=== PATIENT | male | born 1940 | race Caucasian/White ===

== ENCOUNTER → 2016-06-15 | Outpatient (CLI) | payer OTHER ==
[~2016-06-15] VITALS: Ht 172.7 cm; Wt 83.9 kg
[~2016-06-15] MED LIST: AEROBID INHALER7 GM IH; DOXYCYCLINE HY100 MG PO; ELIQUIS5 MG PO; FINASTERIDE5 MG PO; HYTRIN2 M1 PO; HYTRIN2 MG PO; INDOCIN50 MG PO; IRON325 M1 PO; METFORMIN HCL1000 MG PO; NORCO 5/3251 TABLET PO; PREDNISONE10 MG PO; PROVENTIL,2.5 MG/3 M IH; SEREVENT DISKU50 MCG IH; SYMBICORT60 INHALA1 IH; VENTOLIN HFA18 GM IH
[2016-06-15 09:08] LABS: POINT-OF-CARE METER ID UU13113694
== END | disposition home or self-care (01) ==
LOC: AMB 07:26
PROVIDERS: Internal Medicine
DX: R19.5 Other fecal abnormalities (principal); D12.2 Benign neoplasm of ascending colon; D12.3 Benign neoplasm of transverse colon; D12.5 Benign neoplasm of sigmoid colon; K57.90 Diverticulosis of intestine, part unspecified, without perforation or abscess without bleeding; K64.8 Other hemorrhoids; J45.909 Unspecified asthma, uncomplicated; N40.0 Benign prostatic hyperplasia without lower urinary tract symptoms; Z87.891 Personal history of nicotine dependence
CPT/HCPCS: 82948; 88305

== ENCOUNTER 2016-07-08 09:17 | Emergency (ER) | payer OTHER ==
[~2016-07-08] VITALS: Ht 172.7 cm; Wt 84.6 kg
[2016-07-08 10:17] LABS: EOSINOPHIL (%) 2.7 % (0-5); EOSINOPHIL COUNT 0.4 K/uL (0-0.3); HEMATOCRIT 42.1 % (38.0-50.0); IMMATURE GRANULOCYTE (%) 0.4 % (0.0-0.7); IMMATURE GRANULOCYTE COUNT 0.1 K/uL; INSTRUMENT ABS NEUTROPHIL CT 12.2 K/uL; LYMPHOCYTE COUNT 0.5 K/uL (1.0-2.8); MCH 23.7 PG (29.0-34.0); MCV 81.7 FL (86-99); MONOCYTE (%) 6.6 % (3-12); MONOCYTE COUNT 0.9 K/uL (0-0.8); NEUTROPHIL (%) 86.9 % (45-76); NEUTROPHIL COUNT 12.2 K/uL (1.8-6.4); PLATELET COUNT 233 K/uL (156-360); RBC DIS.WIDTH-CV 18.7 % (11.8-14.6); RED BLOOD COUNT 5.15 M/uL (4.00-5.50)
[2016-07-08 10:53] LABS: ANION GAP 9 MEQ/L (2-14); CHLORIDE 102 MEQ/L (99-109); GFR ESTIMATE (CALCULATED) > 59 mL/min/; GLUCOSE 233 mg/dL (70-99); POTASSIUM 3.9 MEQ/L (3.7-5.4); SAMPLE HEMOLYSIS CHECK 0; SAMPLE ICTERIC CHECK 0; SAMPLE LIPEMIA CHECK 0; SODIUM 138 MEQ/L (136-147); UREA NITROGEN (BUN) 14 mg/dL (9-23)
[2016-07-08] MEDS ORDERED: ANTIVERT25 MG PO (12:13)
[2016-07-08 12:26] VITALS: BP 110/69
== END 2016-07-08 12:26 | disposition home or self-care (01) ==
LOC: EME 09:17
PROVIDERS: Emergency Medicine
DX: R42 Dizziness and giddiness (principal); R53.1 Weakness; R11.0 Nausea; C18.9 Malignant neoplasm of colon, unspecified; J44.9 Chronic obstructive pulmonary disease, unspecified; J45.909 Unspecified asthma, uncomplicated; Z87.891 Personal history of nicotine dependence
CPT/HCPCS: 70450; 80048; 85025; 93005; 99281; 99284; J2405; J7030

== ENCOUNTER 2016-08-14 09:15 | Inpatient (IN) | payer OTHER ==
[~2016-08-14] VITALS: Ht 172.7 cm; Wt 83.9 kg
[~2016-08-14 09:15] MED LIST changes: +ANTIVERT25 MG PO; +FISH OIL 1,0001 EAC7 PO; +VITAMIN E200 UNI2 PO
[2016-08-14 10:03] VITALS: BP 126/86
[2016-08-14 10:15] LABS: POINT-OF-CARE METER ID UU14174212
[2016-08-14 16:52] LABS: POINT-OF-CARE METER ID UU13113675
[2016-08-14 19:15] VITALS: BP 124/64
[2016-08-14 22:58] VITALS: BP 122/68
[2016-08-15 01:11] LABS: POINT-OF-CARE USER ID 608261329
[2016-08-15 03:52] VITALS: BP 111/59
[2016-08-15 07:01] LABS: HEMATOCRIT 35.7 % (38.0-50.0); MCH 23.6 PG (29.0-34.0); MCHC 29.4 G/DL (30.0-36.0); MCV 80.4 FL (86-99); MEAN PLAT.VOLUME 10.3 uM^3 (9.0-12.4); PLATELET COUNT 203 K/uL (156-360); RBC DIS.WIDTH-CV 16.9 % (11.8-14.6); RBC DIS.WIDTH-SD 49.2 % (39-53); RED BLOOD COUNT 4.44 M/uL (4.00-5.50)
[2016-08-15 07:07] VITALS: BP 103/55
[2016-08-15 07:12] LABS: WHITE BLOOD COUNT 14.8 K/uL (4.1-10.2)
[2016-08-15 07:32] LABS: ANION GAP 10 MEQ/L (2-14); CHLORIDE 103 MEQ/L (99-109); GFR ESTIMATE (CALCULATED) > 59 mL/min/; GLUCOSE 103 mg/dL (70-99); POTASSIUM 4.3 MEQ/L (3.7-5.4); SAMPLE HEMOLYSIS CHECK 0; SAMPLE ICTERIC CHECK 0; SAMPLE LIPEMIA CHECK 0; SODIUM 138 MEQ/L (136-147); UREA NITROGEN (BUN) 10 mg/dL (9-23)
[2016-08-15 07:44] LABS: Estimated Average Glucose 143 mg/dL (70-123); HEMOGLOBIN A1c (GLYCOHEMOGLOB) 6.6 % HGB (Below 5.7)
[2016-08-15 11:15] VITALS: BP 101/59
[2016-08-15 15:45] VITALS: BP 112/58
[2016-08-15 18:57] VITALS: BP 115/62
[2016-08-15 19:13] LABS: POINT-OF-CARE METER ID UU13113725
[2016-08-15 22:32] VITALS: BP 123/67
[2016-08-16 00:31] LABS: POINT-OF-CARE METER ID UU13113725; POINT-OF-CARE USER ID 608261329
[2016-08-16 03:29] VITALS: BP 119/67
[2016-08-16 05:43] LABS: POINT-OF-CARE METER ID UU13113725
[2016-08-16 06:59] VITALS: BP 125/56
[2016-08-16 07:25] LABS: HEMATOCRIT 32.7 % (38.0-50.0); MCH 23.8 PG (29.0-34.0); MCHC 29.7 G/DL (30.0-36.0); MCV 80.3 FL (86-99); MEAN PLAT.VOLUME 10.4 uM^3 (9.0-12.4); PLATELET COUNT 163 K/uL (156-360); RBC DIS.WIDTH-CV 16.9 % (11.8-14.6); RBC DIS.WIDTH-SD 49.5 % (39-53); RED BLOOD COUNT 4.07 M/uL (4.00-5.50); WHITE BLOOD COUNT 10.8 K/uL (4.1-10.2)
[2016-08-16 08:19] LABS: ANION GAP 10 MEQ/L (2-14); CHLORIDE 103 MEQ/L (99-109); GFR ESTIMATE (CALCULATED) > 59 mL/min/; GLUCOSE 94 mg/dL (70-99); POTASSIUM 4.1 MEQ/L (3.7-5.4); SAMPLE HEMOLYSIS CHECK 0; SAMPLE ICTERIC CHECK 0; SAMPLE LIPEMIA CHECK 0; SODIUM 137 MEQ/L (136-147); UREA NITROGEN (BUN) 8 mg/dL (9-23)
[2016-08-16 10:37] VITALS: BP 107/59
[2016-08-16 12:40] LABS: POINT-OF-CARE METER ID UU13113725
[2016-08-16 15:44] VITALS: BP 107/57
[2016-08-16 18:38] LABS: POINT-OF-CARE METER ID UU13113725
[2016-08-16 18:55] VITALS: BP 115/65
[2016-08-16 22:18] VITALS: BP 121/62
[2016-08-17 00:32] LABS: POINT-OF-CARE METER ID UU13113725; POINT-OF-CARE USER ID 608261329
[2016-08-17 02:37] VITALS: BP 127/71
[2016-08-17 06:32] LABS: HEMATOCRIT 32.6 % (38.0-50.0); MCH 24.1 PG (29.0-34.0); MCHC 30.1 G/DL (30.0-36.0); MCV 80.3 FL (86-99); PLATELET COUNT 174 K/uL (156-360); RBC DIS.WIDTH-CV 16.7 % (11.8-14.6); RBC DIS.WIDTH-SD 49.2 % (39-53); RED BLOOD COUNT 4.06 M/uL (4.00-5.50); WHITE BLOOD COUNT 9.9 K/uL (4.1-10.2)
[2016-08-17 06:44] VITALS: BP 121/68
[2016-08-17 06:55] LABS: ANION GAP 11 MEQ/L (2-14); CHLORIDE 104 MEQ/L (99-109); GFR ESTIMATE (CALCULATED) > 59 mL/min/; GLUCOSE 75 mg/dL (70-99); POTASSIUM 4.1 MEQ/L (3.7-5.4); SAMPLE HEMOLYSIS CHECK 0; SAMPLE ICTERIC CHECK 0; SAMPLE LIPEMIA CHECK 0; SODIUM 137 MEQ/L (136-147); UREA NITROGEN (BUN) 6 mg/dL (9-23)
[2016-08-17 07:17] LABS: POINT-OF-CARE METER ID UU13113725; POINT-OF-CARE USER ID 608261329
[2016-08-17 10:50] LABS: POINT-OF-CARE METER ID UU13113725
[2016-08-17 16:06] VITALS: BP 137/63
[2016-08-17 17:30] LABS: POINT-OF-CARE METER ID UU13113725
[2016-08-17 19:10] VITALS: BP 126/60
[2016-08-17 22:56] VITALS: BP 122/67
[2016-08-17 23:45] LABS: POINT-OF-CARE METER ID UU13113725
[2016-08-18 02:36] VITALS: BP 111/67
[2016-08-18 06:47] VITALS: BP 126/65
[2016-08-18 08:00] LABS: HEMATOCRIT 30.8 % (38.0-50.0); MCH 23.9 PG (29.0-34.0); MCHC 29.5 G/DL (30.0-36.0); MCV 80.8 FL (86-99); MEAN PLAT.VOLUME 10.9 uM^3 (9.0-12.4); PLATELET COUNT 195 K/uL (156-360); RBC DIS.WIDTH-SD 49.5 % (39-53); RED BLOOD COUNT 3.81 M/uL (4.00-5.50); WHITE BLOOD COUNT 10.2 K/uL (4.1-10.2)
[2016-08-18 08:23] LABS: ANION GAP 13 MEQ/L (2-14); CHLORIDE 106 MEQ/L (99-109); GFR ESTIMATE (CALCULATED) > 59 mL/min/; POTASSIUM 3.8 MEQ/L (3.7-5.4); SAMPLE HEMOLYSIS CHECK 0; SAMPLE ICTERIC CHECK 0; SAMPLE LIPEMIA CHECK 0; SODIUM 139 MEQ/L (136-147); UREA NITROGEN (BUN) 6 mg/dL (9-23)
[2016-08-18 08:24] LABS: GLUCOSE 145 mg/dL (70-99)
[2016-08-18 08:40] LABS: POINT-OF-CARE METER ID UU13113725
[2016-08-18 11:40] VITALS: BP 117/62
[2016-08-18 15:15] VITALS: BP 165/64
[2016-08-18 17:28] VITALS: BP 118/69
[2016-08-18 22:42] VITALS: BP 131/69
[2016-08-19 03:36] VITALS: BP 110/67
[2016-08-19 06:52] LABS: HEMATOCRIT 28.3 % (38.0-50.0); MCH 24.1 PG (29.0-34.0); MCV 80.2 FL (86-99); MEAN PLAT.VOLUME 10.6 uM^3 (9.0-12.4); PLATELET COUNT 182 K/uL (156-360); RBC DIS.WIDTH-CV 16.9 % (11.8-14.6); RBC DIS.WIDTH-SD 49.1 % (39-53); RED BLOOD COUNT 3.53 M/uL (4.00-5.50)
[2016-08-19 07:15] VITALS: BP 120/64
[2016-08-19 07:19] LABS: ANION GAP 11 MEQ/L (2-14); CHLORIDE 108 MEQ/L (99-109); GFR ESTIMATE (CALCULATED) > 59 mL/min/; GLUCOSE 112 mg/dL (70-99); POTASSIUM 3.8 MEQ/L (3.7-5.4); SAMPLE HEMOLYSIS CHECK 0; SAMPLE ICTERIC CHECK 0; SAMPLE LIPEMIA CHECK 0; SODIUM 139 MEQ/L (136-147); UREA NITROGEN (BUN) 6 mg/dL (9-23)
[2016-08-19 11:04] LABS: POINT-OF-CARE METER ID UU13113725
[2016-08-19 12:00] VITALS: BP 118/65
[2016-08-19 15:02] VITALS: BP 126/61
[2016-08-19 23:02] VITALS: BP 113/62
[2016-08-20 06:24] LABS: HEMATOCRIT 28.4 % (38.0-50.0); MCH 24.2 PG (29.0-34.0); MCHC 30.6 G/DL (30.0-36.0); MCV 79.1 FL (86-99); MEAN PLAT.VOLUME 10.7 uM^3 (9.0-12.4); PLATELET COUNT 195 K/uL (156-360); RBC DIS.WIDTH-CV 16.9 % (11.8-14.6); RBC DIS.WIDTH-SD 48.9 % (39-53); RED BLOOD COUNT 3.59 M/uL (4.00-5.50); WHITE BLOOD COUNT 13.6 K/uL (4.1-10.2)
[2016-08-20 06:44] LABS: ANION GAP 13 MEQ/L (2-14); CHLORIDE 106 MEQ/L (99-109); GFR ESTIMATE (CALCULATED) > 59 mL/min/; POTASSIUM 3.7 MEQ/L (3.7-5.4); SAMPLE HEMOLYSIS CHECK 0; SAMPLE ICTERIC CHECK 0; SAMPLE LIPEMIA CHECK 0; SODIUM 140 MEQ/L (136-147); UREA NITROGEN (BUN) 6 mg/dL (9-23)
[2016-08-20 06:47] LABS: GLUCOSE 81 mg/dL (70-99)
[2016-08-20 07:14] VITALS: BP 115/57
[2016-08-20] MEDS ORDERED: BACTRIM,SEPT1 TABLET PO (15:12)
[2016-08-20] MEDS ORDERED: FLAGYL500 MG PO (15:12)
[2016-08-20] MEDS ORDERED: HYDROCODON-ACE1 EAC7 PO (15:12)
[2016-08-20] MEDS ORDERED: NIFEREX-150,FE150 MG PO (15:23)
[2016-08-20] MEDS ORDERED: ELIQUIS5 MG PO (15:23)
[2016-08-20 15:29] VITALS: BP 130/68
== END 2016-08-20 18:25 | disposition home or self-care (01) | DRG 330 ==
LOC: 2SOUTH 09:15 → 5EAST 09:29 → 2SOUTH 09:29 → 5EAST 18:14
PROVIDERS: Surgery
DX: C18.7 Malignant neoplasm of sigmoid colon (principal); K57.90 Diverticulosis of intestine, part unspecified, without perforation or abscess without bleeding; E11.9 Type 2 diabetes mellitus without complications; J45.909 Unspecified asthma, uncomplicated; N40.0 Benign prostatic hyperplasia without lower urinary tract symptoms; I10 Essential (primary) hypertension; T81.4XXA Infection following a procedure, initial encounter; L03.311 Cellulitis of abdominal wall; Y83.8 Other surgical procedures as the cause of abnormal reaction of the patient, or of later complication, without mention of misadventure at the time of the procedure
CPT/HCPCS: 80048; 82948; 83036; 85027; 87070; 87075; 87076; 87185; 87205; 88302; 88307; 88309; 94640; 94640 76; 94760; 94799; J0131; J0330; J1100; J1170; J1650; J1815; J2405; J2710; J3010; J3480; J7050; S0074

== ENCOUNTER 2017-09-18 06:13 | Inpatient (IN) | payer OTHER ==
[~2017-09-18] VITALS: Ht 172.7 cm; Wt 81.5 kg
[~2017-09-18 06:13] MED LIST changes: +BACTRIM,SEPT1 TABLET PO; +FLAGYL500 MG PO; +HYDROCODON-ACE1 EAC7 PO; +NIFEREX-150,FE150 MG PO
[2017-09-18 06:58] LABS: HEMATOCRIT 39.7 % (38.0-50.0); HEMOGLOBIN 12.6 G/DL (12.5-16.6); MCH 26.9 PG (29.0-34.0); MCHC 31.7 G/DL (30.0-36.0); MCV 84.6 FL (86-99); PLATELET COUNT 181 K/uL (156-360); RBC DIS.WIDTH-CV 18.4 % (11.8-14.6); RBC DIS.WIDTH-SD 55.4 % (39-53); RED BLOOD COUNT 4.69 M/uL (4.00-5.50); WHITE BLOOD COUNT 16.5 K/uL (4.1-10.2)
[2017-09-18] MEDS ORDERED: PREDNISONE20 MG PO (07:03)
[2017-09-18] MEDS ORDERED: ZITHROMAX250 MG PO (07:09)
[2017-09-18 07:28] LABS: ALKALINE PHOSPHATASE 45 IU/L (3-129); ALT (GPT) 14 IU/L (3-49); AST (GOT) 20 IU/L (2-34); CHLORIDE 104 MEQ/L (99-109); CREATININE 0.9 MG/DL (0.6-1.3); GFR ESTIMATE (CALCULATED) > 59 mL/min/ (58.99-99999); GLUCOSE 158 mg/dL (70-99); POTASSIUM 3.7 MEQ/L (3.7-5.4); SODIUM 137 MEQ/L (136-147); TOTAL BILIRUBIN 0.7 MG/DL (0.0-1.0); TOTAL PROTEIN 5.9 G/DL (6.4-8.3); TROP-I INTERPRETATION NEGATIVE; TROPONIN-I < 0.01 ng/mL (0.0-0.30); UREA NITROGEN (BUN) 12 mg/dL (9-23)
[2017-09-18] MEDS ORDERED: ATARAX10 MG PO (09:51)
[2017-09-18] MEDS ORDERED: KENALOG,ARISTOC80 GM TP (09:52)
[2017-09-18] MEDS ORDERED: PROAIR HFA8.5 GM IH (09:53)
[2017-09-18] MEDS ORDERED: IRON325 M1 PO (09:54)
[2017-09-18 11:09] VITALS: BP 113/61
[2017-09-18 11:47] LABS: BASE EXCESS -4.3 mEq/L (-3 to +3); BICARBONATE 20.1 mEq/L (22-26); CARBOXY HGB 1.9 % (0-5); COMMENTS - BLOOD GASES A+C+; DEVICE NC; O2 FLOW 4 L/MIN; PCO2 34 mm Hg (35-45); PO2 68 mm Hg (80-100); SITE RR; TOTAL RESP RATE 16 resp/min; pH 7.38 (7.35-7.45)
[2017-09-18 12:46] LABS: TROP-I INTERPRETATION NEGATIVE; TROPONIN-I < 0.01 ng/mL (0.0-0.30)
[2017-09-18 15:55] VITALS: BP 104/57
[2017-09-18 18:36] LABS: TROP-I INTERPRETATION NEGATIVE; TROPONIN-I < 0.01 ng/mL (0.0-0.30)
[2017-09-18 19:15] VITALS: BP 100/57
[2017-09-18 23:51] VITALS: BP 95/50
[2017-09-19 05:33] LABS: BASOPHIL (%) 0.1 % (0-1); EOSINOPHIL (%) 0 % (0-5); HEMATOCRIT 33.9 % (38.0-50.0); IMMATURE GRANULOCYTE (%) 1.3 % (0.0-0.7); LYMPHOCYTE (%) 2.7 % (15-42); LYMPHOCYTE COUNT 0.5 K/uL (1.0-2.8); MCH 26.3 PG (29.0-34.0); MCV 84.8 FL (86-99); MONOCYTE (%) 2.8 % (3-12); MONOCYTE COUNT 0.5 K/uL (0-0.8); NEUTROPHIL (%) 93.1 % (45-76); NEUTROPHIL COUNT 15.4 K/uL (1.8-6.4); PLATELET COUNT 171 K/uL (156-360); RBC DIS.WIDTH-CV 18.5 % (11.8-14.6); RBC DIS.WIDTH-SD 57.7 % (39-53); WHITE BLOOD COUNT 16.5 K/uL (4.1-10.2)
[2017-09-19 05:34] LABS: HEMOGLOBIN 10.5 G/DL (12.5-16.6)
[2017-09-19 06:09] LABS: CHLORIDE 105 MEQ/L (99-109); GFR ESTIMATE (CALCULATED) > 59 mL/min/ (58.99-99999); GLUCOSE 151 mg/dL (70-99); POTASSIUM 4.1 MEQ/L (3.7-5.4); SODIUM 137 MEQ/L (136-147)
[2017-09-19 06:15] LABS: UREA NITROGEN (BUN) 27 mg/dL (9-23)
[2017-09-19 07:08] VITALS: BP 80/52
[2017-09-19 11:09] VITALS: BP 106/60
[2017-09-19 15:19] VITALS: BP 118/64
[2017-09-19 19:21] VITALS: BP 107/61
[2017-09-20 00:12] VITALS: BP 113/65
[2017-09-20 04:15] VITALS: BP 102/60
[2017-09-20 06:06] LABS: HEMATOCRIT 33.3 % (38.0-50.0); HEMOGLOBIN 10.2 G/DL (12.5-16.6); MCH 26.1 PG (29.0-34.0); MCHC 30.6 G/DL (30.0-36.0); MCV 85.2 FL (86-99); PLATELET COUNT 183 K/uL (156-360); RBC DIS.WIDTH-CV 18.9 % (11.8-14.6); RBC DIS.WIDTH-SD 58.4 % (39-53); RED BLOOD COUNT 3.91 M/uL (4.00-5.50); WHITE BLOOD COUNT 16.1 K/uL (4.1-10.2)
[2017-09-20 06:38] LABS: CHLORIDE 109 MEQ/L (99-109); CREATININE 0.9 MG/DL (0.6-1.3); GFR ESTIMATE (CALCULATED) > 59 mL/min/ (58.99-99999); GLUCOSE 185 mg/dL (70-99); POTASSIUM 4.1 MEQ/L (3.7-5.4); SODIUM 141 MEQ/L (136-147); UREA NITROGEN (BUN) 26 mg/dL (9-23)
[2017-09-20 07:21] VITALS: BP 99/57
[2017-09-20 15:23] VITALS: BP 113/62
[2017-09-20 23:18] VITALS: BP 92/51
[2017-09-21 06:31] LABS: HEMATOCRIT 33.5 % (38.0-50.0); HEMOGLOBIN 10.2 G/DL (12.5-16.6); MCH 26.1 PG (29.0-34.0); MCHC 30.4 G/DL (30.0-36.0); MCV 85.7 FL (86-99); PLATELET COUNT 167 K/uL (156-360); RBC DIS.WIDTH-CV 19.2 % (11.8-14.6); RBC DIS.WIDTH-SD 60.6 % (39-53); RED BLOOD COUNT 3.91 M/uL (4.00-5.50); WHITE BLOOD COUNT 10.6 K/uL (4.1-10.2)
[2017-09-21 06:57] LABS: CHLORIDE 111 MEQ/L (99-109); CREATININE 0.9 MG/DL (0.6-1.3); GFR ESTIMATE (CALCULATED) > 59 mL/min/ (58.99-99999); GLUCOSE 172 mg/dL (70-99); POTASSIUM 3.8 MEQ/L (3.7-5.4); SODIUM 143 MEQ/L (136-147); UREA NITROGEN (BUN) 24 mg/dL (9-23)
[2017-09-21 08:04] VITALS: BP 124/54
[2017-09-21] MEDS ORDERED: AUGMENTIN875 MG PO (09:54)
[2017-09-21] MEDS ORDERED: PREDNISONE20 MG PO (11:20)
== END 2017-09-21 12:09 | disposition home or self-care (01) | DRG 190 ==
LOC: EME → EDBD 06:13 → 5SOUTH 09:20 → EDOF 09:20 → ENRESERV 09:21 → 5SOUTH 10:58
PROVIDERS: Emergency Medicine Emergency Medical Services; Hospitalist; Internal Medicine; Nurse Practitioner Adult Health
DX: J44.1 Chronic obstructive pulmonary disease with (acute) exacerbation (principal); A41.9 Sepsis, unspecified organism; J18.9 Pneumonia, unspecified organism; J44.0 Chronic obstructive pulmonary disease with (acute) lower respiratory infection; J96.01 Acute respiratory failure with hypoxia; E11.65 Type 2 diabetes mellitus with hyperglycemia; I95.9 Hypotension, unspecified; R91.1 Solitary pulmonary nodule; I10 Essential (primary) hypertension; E78.5 Hyperlipidemia, unspecified; K21.9 Gastro-esophageal reflux disease without esophagitis; N40.0 Benign prostatic hyperplasia without lower urinary tract symptoms; M10.9 Gout, unspecified; Z86.711 Personal history of pulmonary embolism; Z79.84 Long term (current) use of oral hypoglycemic drugs; Z85.038 Personal history of other malignant neoplasm of large intestine; Z86.73 Personal history of transient ischemic attack (TIA), and cerebral infarction without residual deficits; Z87.891 Personal history of nicotine dependence
CPT/HCPCS: 36600; 71045; 71275; 80048; 80053; 82803; 82948; 83605; 83880; 84484; 85025; 85027; 87040; 87070; 87205; 87449; 93005; 94640; 94640 76; 94644; 94760; 94799; 99202; 99281; 99285; J0295; J0456; J1644; J1815; J2930; J3475; J7030; J7040; J7050

== ENCOUNTER → 2017-11-05 | Outpatient (CLI) | payer OTHER ==
[~2017-11-05] VITALS: Ht 172.7 cm; Wt 81.6 kg
[~2017-11-05] MED LIST changes: +ATARAX10 MG PO; +AUGMENTIN875 MG PO; +GLUCOPHAGE1000 MG PO; +KENALOG,ARISTOC80 GM TP; -METFORMIN HCL1000 MG PO; +PREDNISONE20 MG PO; +PROAIR HFA8.5 GM IH; +VITAMIN B122500 MCG PO; +ZITHROMAX250 MG PO
== END | disposition home or self-care (01) ==
LOC: AMB 09:44
PROVIDERS: Internal Medicine
DX: Z08 Encounter for follow-up examination after completed treatment for malignant neoplasm (principal); K63.5 Polyp of colon; Z85.038 Personal history of other malignant neoplasm of large intestine; K57.30 Diverticulosis of large intestine without perforation or abscess without bleeding; K64.8 Other hemorrhoids; D64.9 Anemia, unspecified; N40.0 Benign prostatic hyperplasia without lower urinary tract symptoms; J44.9 Chronic obstructive pulmonary disease, unspecified; Z79.84 Long term (current) use of oral hypoglycemic drugs; Z88.5 Allergy status to narcotic agent
CPT/HCPCS: 82948; 88305